=== PATIENT | male | born 1955 | race American Indian/Alaskan Native ===

== ENCOUNTER 2016-10-09 09:37 | Emergency (ER) | payer MEDICAID ==
[2016-10-09 10:32] LABS: Basophils % (Auto) 0.3 % (0.0-1.8); Eosinophils % (Auto) 1.9 % (0.0-4.3); Hematocrit 42.3 % (35.5-45.6); Hemoglobin 13.8 gm/dl (11.8-15.2); Mean Corpuscular HGB Conc 33 % (32-34); Mean Corpuscular Hemoglobin 28 pg (28-32); Mean Corpuscular Volume 85 fl (84-94); Platelet Count 240 K/mm3 (140-440); Red Blood Count 4.97 M/mm3 (3.65-5.03); Red Cell Distribution Width 14.6 % (13.2-15.2); White Blood Count 7.9 K/mm3 (4.5-11.0)
--- NOTE | 2016-10-09 10:48 | Emergency Department Report ---
ED Chest Pain HPI - General Chief Complaint: Chest Pain Stated Complaint: CHEST PAIN,CHF,HTN Time Seen by Provider: 10/09/16 10:31 Source: patient Mode of arrival: Ambulatory Limitations: No Limitations - History of Present Illness Initial Comments: 61-year-old male presents to the emergency department complaining of chest pain. Patient states that he constantly has a dull pain in his chest and this has been present for years. 3 days ago, however, the pain became stabbing in nature and more intense. Pain is in the center of his chest and does not radiate. He reports increasing shortness of breath over the past 4 days. He denies lightheadedness, diaphoresis, nausea, or vomiting. Patient reports a history of hypertension and CHF. He states he was taken off of his medications after a recent illness, but was not restarted on them. There are no other complaints. MD Complaint: chest pain -: Gradual, days(s) (3) Onset: during rest Pain Location: substernal Pain Radiation: none Severity: moderate Severity scale (0 -10): 5 Quality: other (stabbing) Consistency: constant Improves With: nothing Worsens With: nothing re: dyspnea. denies: nausea, vomting, diaphoresis Other Symptoms: denies: syncope, palpitations Treatments Prior to Arrival: none Aspirin use within the Past 7 Days: (0) No - Related Data Home Medications Medication Instructions Recorded Confirmed Last Taken Levothyroxine [Synthroid] 150 mcg PO DAILY 10/09/16 10/09/16 1 Day Ago Previous Rx's Medication Instructions Recorded Last Taken Type Losartan [Cozaar] 25 mg PO QDAY #30 tablet 10/09/16 Unknown Rx Metoprolol [Lopressor TAB] 25 mg PO BID #60 tablet 10/09/16 Unknown Rx Allergies Allergy/AdvReac Type Severity Reaction Status Date / Time acetaminophen [From Tylenol] Allergy Unknown Verified 10/09/16 10:06 ibuprofen Allergy Swelling Verified 10/09/16 10:06 Latex, Natural Rubber Allergy Rash Verified 10/09/16 10:06 lisinopril Allergy Shortness Verified 10/09/16 10:06 of Breath JAGDISH score - Jagdish Score Age > 65: (0) No Aspirin use within the Past 7 Days: (0) No 3 or more CAD Risk Factors: (1) Yes 2 or more Angina events in past 24 hrs: (1) Yes Known CAD with more than 50% Stenosis: (0) No Elevated Cardiac Markers: (0) No ST Deviation Greater than 0.5mm: (0) No JAGDISH Score: 2 ED Review of Systems ROS: Stated complaint: CHEST PAIN,CHF,HTN Other details as noted in HPI Comment: All other systems reviewed and negative Respiratory: shortness of breath Cardiovascular: chest pain ED Past Medical Hx - Past Medical History Previous Medical History?: Yes Hx Hypertension: Yes Hx Congestive Heart Failure: Yes Additional medical history: A. Fib, Hypothyroid, Stomach issues - Surgical History Past Surgical History?: No - Family History Family history: no significant - Social History Smoking Status: Never Smoker Substance Use Type: None - Medications Home Medications: Home Medications Medication Instructions Recorded Confirmed Last Taken Type Levothyroxine [Synthroid] 150 mcg PO DAILY 10/09/16 10/09/16 1 Day Ago History Losartan [Cozaar] 25 mg PO QDAY #30 tablet 10/09/16 Unknown Rx Metoprolol [Lopressor TAB] 25 mg PO BID #60 tablet 10/09/16 Unknown Rx ED Physical Exam - General Limitations: No Limitations General appearance: alert, in no apparent distress - Head Head exam: Present: atraumatic, normocephalic - Eye Eye exam: Present: normal appearance, PERRL, EOMI - ENT ENT exam: Present: normal exam, normal orophraynx, mucous membranes moist - Neck Neck exam: Present: normal inspection, full ROM. Absent: tenderness - Respiratory Respiratory exam: Present: normal lung sounds bilaterally. Absent: respiratory distress - Cardiovascular Cardiovascular Exam: Present: regular rate, normal rhythm, normal heart sounds - GI/Abdominal GI/Abdominal exam: Present: soft, normal bowel sounds. Absent: distended, tenderness - Extremities Exam Extremities exam: Present: normal inspection, full ROM. Absent: tenderness - Back Exam Back exam: Present: normal inspection, full ROM. Absent: tenderness - Neurological Exam Neurological exam: Present: alert, oriented X3. Absent: motor sensory deficit - Skin Skin exam: Present: warm, dry, intact ED Course Vital Signs 10/09/16 10/09/16 10/09/16 10:06 10:35 10:41 Temperature 98.3 F Pulse Rate 84 67 69 Respiratory 20 14 10 L Rate Blood Pressure 183/119 148/110 O2 Sat by Pulse 96 99 Oximetry 10/09/16 10/09/16 10/09/16 10:51 11:00 11:11 Temperature Pulse Rate 70 61 60 Respiratory 10 L 10 L 20 Rate Blood Pressure 148/110 156/89 156/89 O2 Sat by Pulse 96 96 96 Oximetry 10/09/16 10/09/16 10/09/16 11:21 11:31 11:41 Temperature Pulse Rate 74 75 76 Respiratory 21 12 14 Rate Blood Pressure 156/89 156/89 156/89 O2 Sat by Pulse 96 96 99 Oximetry 10/09/16 11:51 Temperature Pulse Rate 74 Respiratory 14 Rate Blood Pressure 156/89 O2 Sat by Pulse 98 Oximetry ED Medical Decision Making - Lab Data Result diagrams: 10/09/16 10:19 10/09/16 10:19 - EKG Data -: EKG Interpreted by Me EKG shows normal: sinus rhythm, axis, intervals, QRS complexes Rate: normal - EKG Data When compared to previous EKG there are: no significant change Interpretation: unchanged when compared t (11/15/2012), nonspecific ST-T wave morales - Radiology Data Radiology results: report reviewed Chest x-ray shows no acute cardiopulmonary abnormality. - Medical Decision Making Lab and imaging results reviewed and discussed with the patient. Patient has been evaluated in the emergency department by cardiology. Patient will be started on oral beta valentine and ARB and discharged home to follow up with cardiology as an outpatient. - Differential Diagnosis ACS, CHF, GERD Critical care attestation.: If time is entered above; I have spent that time in minutes in the direct care of this critically ill patient, excluding procedure time. ED Disposition Clinical Impression: Non-cardiac chest pain Disposition: DISCHARGED TO HOME OR SELFCARE Is pt being admited?: No Condition: Stable Instructions: Chest Pain (ED) Prescriptions: Losartan [Cozaar] 25 mg PO QDAY #30 tablet Metoprolol [Lopressor TAB] 25 mg PO BID #60 tablet Referrals: ROSHAN GREENE MD [Staff Physician] - 10/16/16 1:00 pm [facility] [Provider Group] - 3-5 Days Time of Disposition: 12:36
[2016-10-09 10:50] LABS: Anion Gap 19 mmol/L; Blood Urea Nitrogen 13 mg/dL (9-20); Calcium 9.8 mg/dL (8.4-10.2); Carbon Dioxide 25 mmol/L (22-30); Chloride 97.2 mmol/L (98-107); Glucose 85 mg/dL (75-100); Sodium 137 mmol/L (137-145)
--- NOTE | 2016-10-09 10:55 | XRay Report ---
PORTABLE CHEST INDICATION: Chest pain, difficulty breathing. COMPARISON: None similar. FINDINGS: Portable, frontal chest radiograph demonstrates grossly normal cardiomediastinal silhouette and clear lungs. EKG leads. Intact bones. CONCLUSION: No acute disease. Thank you for the opportunity to participate in this patient's care.
--- NOTE | 2016-10-09 11:36 | Consultation ---
History of Present Illness Consult date: 10/09/16 Requesting physician: VIRI DURHAM Consult reason: chest pain History of present illness: The patient is a 61 YO male with a past medical history significant for paroxysmal atrial fibrillation, not currently on anticoagulation 2/2 GI bleed ( had GI bleed 4 years ago on coumadin and was subesquently taken off coumadin), HTN, hyperthyroidism s/p radioiodine therapy now with hypothyroidism, and obesity. He is previously unknown to our practice. He presented with c/o chest pain. He reports that he chronically experiences dull, nonexertional, nonradiating chest/epigastric pain x several years but has also been experiencing intermittent, nonexertional, nonradiating, stabbing, substernal and epigastric pain x 3 days [employer]OUSING [employer]. He reports that he has a "stomach obstruction " and is also experiencing nausea and constipation x 2 weeks [employer]OUSING [employer]. He reportedly underwent EGD yesterday with Dr. Thaddeus Peck which revealed hiatal hernia. He denies any SOB, decreased exercise tolerance, vomiting, diaphoresis, or syncope. He reports intermittent palpitations and intermittent dizziness for the past several years. He denies any precipitating, aggravating, or alleviating factors associated with his chest pain. He denies any OP follow up in the last 4 years. He was last seen by a forge hand at [facility] 4 years ago during his admission for GI bleed. Past History Past Medical History: atrial fib, hypertension, hypothyroidism Past Surgical History: No surgical history Social history: denies: smoking, alcohol abuse, prescription drug abuse Family history: no significant family history Medications and Allergies Allergies Allergy/AdvReac Type Severity Reaction Status Date / Time acetaminophen [From Tylenol] Allergy Unknown Verified 10/09/16 10:06 ibuprofen Allergy Swelling Verified 10/09/16 10:06 Latex, Natural Rubber Allergy Rash Verified 10/09/16 10:06 lisinopril Allergy Shortness Verified 10/09/16 10:06 of Breath Home Medications Medication Instructions Recorded Confirmed Last Taken Type Levothyroxine [Synthroid] 150 mcg PO DAILY 10/09/16 10/09/16 1 Day Ago History Losartan [Cozaar] 25 mg PO QDAY #30 tablet 10/09/16 Unknown Rx Metoprolol [Lopressor TAB] 25 mg PO BID #60 tablet 10/09/16 Unknown Rx Review of Systems Constitutional: weight loss (50 lbs over past year d/t dieting and exercise), no weight gain, no fever, no chills, no sweats Ears, nose, mouth and throat: no ear pain, no nose pain, no sinus pressure, no sinus pain Cardiovascular: chest pain, palpitations, rapid/irregular heart beat, lightheadedness, high blood pressure, no orthopnea, no edema, no syncope, no shortness of breath, no dyspnea on exertion, no paroxysmal nocturnal dyspnea, no leg edema, no decreased exercise tolerance Respiratory: no cough, no shortness of breath, no dyspnea on exertion, no congestion, no wheezing, no pain Gastrointestinal: abdominal pain, nausea, constipation, change in bowel habits, no vomiting, no diarrhea Genitourinary Male: no dysuria, no flank pain, no discharge, no urinary frequency, no urinary hesitancy Musculoskeletal: no neck stiffness, no neck pain, no shooting arm pain, no arm numbness/tingling, no low back pain, no shooting leg pain, no leg numbness/ tingling, no redness of joints Integumentary: no rash, no pruritis, no redness, no sores, no wounds Neurological: no paralysis, no weakness, no parathesias, no numbness, no tingling, no seizures, no syncope, no lack of coordination Psychiatric: no anxiety Endocrine: no cold intolerance, no heat intolerance Hematologic/Lymphatic: no easy bruising, no easy bleeding, no lymphadenopathy Allergic/Immunologic: no urticaria, no wheezing, no persistent infections Physical Examination Last Vital Signs Temp 98.3 F 10/09/16 10:06 Pulse 74 10/09/16 11:51 Resp 14 10/09/16 11:51 BP 156/89 10/09/16 11:51 Pulse Ox 98 10/09/16 11:51 General appearance: no acute distress HEENT: Positive: PERRL, Normocephaly, Mucus Membranes Moist Neck: Positive: neck supple, trachea midline Cardiac: Positive: Reg Rate and Rhythm, S1/S2 Lungs: Positive: Normal Exam, clear to auscultation, Normal Breath Sounds Neuro: Positive: Grossly Intact, Cranial Nerve 2-12 Intact Abdomen: Positive: Unremarkable, Soft, Active Bowel Sounds, Tender (xiphoid area tenderness with palpation ) Skin: Positive: Clear. Negative: Rash, Wound Musculoskeletal: No Fluid Collection, No Pain, Normal Range of Motion Extremities: Present: normal, upper extr. pulses, lower extr. pulses. Absent: edema Results 10/09/16 10:19 10/09/16 10:19 CBC 10/09/16 Range/Units 10:19 WBC 7.9 (4.5-11.0) K/mm3 RBC 4.97 (3.65-5.03) M/mm3 Hgb 13.8 (11.8-15.2) gm/dl Hct 42.3 (35.5-45.6) % Plt Count 240 (140-440) K/mm3 Lymph # 0.9 L (1.2-5.4) K/mm3 [place] # 0.9 H (0.0-0.8) K/mm3 Eos # 0.1 (0.0-0.4) K/mm3 Baso # 0.0 (0.0-0.1) K/mm3 Comprehensive Metabolic Panel 10/09/16 Range/Units 10:19 Sodium 137 (137-145) mmol/L Potassium 4.0 (3.6-5.0) mmol/L Chloride 97.2 L (98-107) mmol/L Carbon Dioxide 25 (22-30) mmol/L BUN 13 (9-20) mg/dL Creatinine 1.0 (0.8-1.5) mg/dL Glucose 85 (75-100) mg/dL Calcium 9.8 (8.4-10.2) mg/dL - Imaging and Cardiology EKG: report reviewed, image reviewed EKG interpretations - Telemetry EKG Rhythm: Sinus Rhythm - EKG Sinus rhythms and dysrhythmias: sinus rhythm Repolarization changes or abnormalities: nonspecific abnormality, ST segment, and/or T wave Assessment and Plan Assessment: Chest pain, atypical / epigastric pain - cardiac enzymes negative for AMI, ECG with NAF, CXR with NAF. Abdominal pain / nausea - in process of GI w/u per Dr. Thaddeus Peck; pt reports that he has OP follow up tomorrow. H/o paroxysmal atrial fibrillation - currently in SR with no documented evidence of atrial fibrillation, not on OAC 2/2 GI bleed 4 years ago per pt report. Uncontrolled HTN Hypothyroidism Obesity Noncompliance with OP follow-up Plan: Currently stable cardiac status. Do not suspect ACS at this time. Pt may discharge home from cardiology standpoint. Consider addition of Lopressor and/or ARB for BP optimization. Plan for stress test and echo as OP. Consider resuming OAC as OP following GI evaluation. Follow up in our [place] office with Dr. Chang on 10/16/2016 @ 1:00PM. Assessment and plan reviewed with pt at bedside. The pt has been seen in conjunction with Dr. Chang who agrees with the assessment and plan of care.
[2016-10-09 13:46] VITALS: BP 162/91
== END 2016-10-09 13:00 | disposition home or self-care (01) ==
LOC: ED 09:37
DX: R07.89 Other chest pain (principal); I10 Essential (primary) hypertension; I50.9 Heart failure, unspecified; I48.91 Unspecified atrial fibrillation; E03.9 Hypothyroidism, unspecified; Z88.8 Allergy status to other drugs, medicaments and biological substances; Z91.040 Latex allergy status
CPT/HCPCS: 36415; 71010; 80048; 83880; 84484; 85025; 93005; 93010; 99284